=== PATIENT | male | born 1965 | race Two or more races ===

== ENCOUNTER 2020-12-02 05:43 | Day surgery (SDC) | payer OTHER ==
[~2020-12-02 05:43] MED LIST: CLONAZEPAM0.5 MG PO; COZAAR50 MG PO; LIPITOR20 MG PO; SINGULAIR10 MG PO; TAMS0.4C PO; TENORMIN25 MG PO
[2020-12-02] MEDS ORDERED: RECTICARE30 GM TOP (08:30)
[2020-12-02] MEDS ORDERED: PERCOCET 5-3251 EACH PO (08:31)
[2020-12-02] MEDS ORDERED: DERMOPLAST PAIN78 GM TOP (08:32)
== END 2020-12-02 17:45 | disposition home or self-care (01) ==
LOC: CIR.AMB 05:43
PROVIDERS: ATTEND Surgery
DX: A63.0 Anogenital (venereal) warts (principal); Z20.822 Contact with and (suspected) exposure to COVID-19